=== PATIENT | male | born 1965 | race African-American/Black ===

== ENCOUNTER 2021-04-22 12:31 | Emergency (ER) | payer SELFPAY ==
[~2021-04-22] VITALS: Ht 177.8 cm; Wt 90.0 kg
[2021-04-22] MEDS ORDERED: VANCOMYCIN 2 GM in IV NORMAL SALINE 500ML BAG 500 ML IV ONE (15:15)
[2021-04-22] MEDS ORDERED: ceFAZolin SODIUM IV Push 1 GM VIAL. IVP ONE (15:15)
[2021-04-22] MEDS ORDERED: VANCOMYCIN PER PHARMACY MC ONE (15:15)
[2021-04-22] MEDS ORDERED: fentaNYL PF VIAL 100 MCG/2 ML VIAL IVP ONE (15:15)
--- NOTE | 2021-04-22 15:17 | PHYS DOC ---
Past Medical History Past Medical History: No Pertinent History Past Surgical History: No Surgical History Smoking Status: Never Smoker Alcohol Use: Occasionally Drug Use: None General Adult EDM: Chief Complaint: HAND PROBLEM HPI: HPI: Patient is a 55 year old male who presents with 2 days ago he was sitting in a chair and fell off to the side and put his left hand backward to catch himself and a piece of glass went into the palm of his hand. He states yesterday it began to swell and become very painful. Rates his pain a 10 out of 10 at this time. States his last tetanus shot was within the last 5 years. Denies any past medical history or any medications. Review of Systems: Review of Systems: Constitutional: Denies fever or chills. [] Eyes: Denies change in visual acuity. [] HENT: Denies nasal congestion or sore throat. [] Respiratory: Denies cough or shortness of breath. [] Cardiovascular: Denies chest pain or edema. [] GI: Denies abdominal pain, nausea, vomiting, bloody stools or diarrhea. [] : Denies dysuria. [] Musculoskeletal: Denies back pain or joint pain. + Left hand. + Index and thumb focal weakness [] Integument: Denies rash. + Left hand cellulitis [] Neurologic: Denies headache, focal weakness or sensory changes. [] Endocrine: Denies polyuria or polydipsia. [] Lymphatic: Denies swollen glands. [] Psychiatric: Denies depression or anxiety. [] Heart Score: C/O Chest Pain: No Allergies: Allergies: Allergies Coded Allergies Type Severity Reaction Last Updated Verified No Known Drug Allergies 04/22/21 No Physical Exam: PE: Constitutional: Well developed, well nourished, no acute distress, non-toxic appearance. [] HENT: Normocephalic, atraumatic, bilateral external ears normal, oropharynx moist, no oral exudates, nose normal. [] Eyes: PERRLA, EOMI, conjunctiva normal, no discharge. [] Neck: Normal range of motion, no tenderness, supple, no stridor. [] Cardiovascular:Heart rate regular rhythm, no murmur [] Lungs & Thorax: Bilateral breath sounds clear to auscultation [] Abdomen: Bowel sounds normal, soft, no tenderness, no masses, no pulsatile masses. [] Skin: Warm, dry, left hand erythema, no rash. [] Back: No tenderness, no CVA tenderness. [] Extremities: Left index finger tenderness, no cyanosis, no clubbing, thumb and index finger ROM not intact, 3+ edema. [] Neurologic: Alert and oriented X 3, normal motor function, normal sensory function, no focal deficits noted. [] Psychologic: Affect normal, judgement normal, mood normal. [] Current Patient Data: Vital Signs: Vital Signs Date Time Temp Pulse Resp B/P (MAP) Pulse Ox O2 Delivery O2 Flow Rate FiO2 04/22/21 14:58 98.5 90 16 157/90 (112) 98 Room Air 98.5 EKG: EKG: [] Radiology/Procedures: Radiology/Procedures: [] Impression: [facility] [address] [place], [place] [id number] IMAGING REPORT Signed PATIENT: SOCRATES BROWNLEE ACCOUNT: [id number] : 1965 LOCATION: ER AGE: 55 SEX: M EXAM STATUS: REG ER ORD. PHYSICIAN: AZALIA ARMENDARIZ APRN REASON: pain, swelling, after glass stuck in hand PROCEDURE: HAND LEFT 3V Study: XR HAND_LEFT 3 VIEWS Indication: Pain and swelling. Comparison: None. Findings: No acute fracture. Mild chronic deformity of the thumb metacarpal. No advanced arthrosis with maintained joint spaces. Edematous prominence of the soft tissues at the dorsum of the hand centered over the metacarpals. No retained radiopaque foreign body seen in this region. On the AP view a small focus of increased density projects over the proximal aspect of the index metacarpal but is without a correlate on the additional views to suggest a foreign body. Impression: No acute osseous abnormality. Edematous soft tissues at the dorsum of the hand without a retained radiopaque foreign body. Electronically signed by: HONEY PANG MD (04/22/2021 3:50 PM) [facility] DICTATED and SIGNED BY: HONEY PANG MD DATE: 04/22/21 [id number] 0 Course & Med Decision Making: Course & Med Decision Making Pertinent Labs and Imaging studies reviewed. (See chart for details) See HPI. Alert and oriented x4. Ambulatory steady gait. Skin pink warm and dry. Patient's left hand is 3+ swollen with redness. He has a scabbed over puncture to the palm of the hand. No fever. He cannot make a fist. He cannot flex the thumb or the index finger. He does have pain when manually flexing the index finger to the lateral aspect of the finger. Cap refills less than 2 seconds. Radial pulses strong and present. He did states that he has some numbness and tingling to the tips of his fingers. He can not open his hand fully nor can he close the hand fully. There is no tenderness to the palm of the hand or any other aspect of the hand except for that index finger. Patient does not have a primary care provider. Patient is placed on Rocephin and vancomycin. I spoke to Dr. Gonzales orthopedic and he states that the best care the patient would be for the patient to go to a facility that they are able to do hand surgery. X-ray shows maybe a possible foreign body to the anterior of the index finger but there is a none seen or felt with exam. I spoke with the patient about the need for transfer as we do not have a hand surgeon here and he could possibly need surgery. I told him the risk of going home without good follow-up care would be loss of the hand or disability. Also told him he could become more ill than he is at this time. Patient states that he is fine with being transferred but will talk with his about what mode of transportation he would like to use. 171: called me back to let me know that they no longer have a hand surgeon. We will now call [facility]. 1729: [facility] call me back and states that they will take the patient over in [facility] and I will get a call back with a confirming Doctor. 1825: Still awaiting [facility] to call me back with a accepting physician. 1911: [facility] has called back with an accepting physician of Dr. Bell. I gave report to the resident Dr Jacobson. 1913: Patient states that he has been here long enough and he is no longer waiting. He states to go to in the morning. He states he is not going to be transferred tonight. I let the patient know that I ready have it set up and he has a room waiting for him. He states no he wants to go home he is tired and he will go in the morning. Patient states that he did not agree to be transferred to any hospital. I remind the patient that me and him had a conversation about transfer and you stated that you would ask your about mode of transportation. Patient and then changes the subject and states " well I am deciding I am not staying on when to go in the morning. I am too tired for this. This is taken too long." I again told the patient I have a room waiting for him and he can be transferred there tonight and it is all set up. Patient is refusing. Patient is signing out AMA. [] Noé Disclaimer: Noé Disclaimer: This electronic medical record was generated, in whole or in part, using a voice recognition dictation system. Departure Departure Impression: Primary Impression: Infected hand Disposition: LEFT AGAINST MEDICAL ADVICE Condition: STABLE Referrals: NO PCP (PCP) AZALIA ARMENDARIZ SPEED OPERATOR Apr 22, 2021 15:17
[2021-04-22 15:50] LABS: BASO # 0.1 x10^3/uL (0.0-0.2); BASO % 1 % (0-3); EOS # 0.1 x10^3/uL (0.0-0.7); EOS % 1 % (0-3); HEMATOCRIT 45.6 % (39.0-53.0); HEMOGLOBIN 15.4 g/dL (13.0-17.5); LYMPH # 1.9 x10^3/uL (1.0-4.8); LYMPH % 27 % (24-48); MEAN CORPUSCULAR HEMOGLOBIN 33 pg (25-35); MEAN CORPUSCULAR HGB CONC 34 g/dL (31-37); MEAN CORPUSCULAR VOLUME 98 fL (79-100); MONO % 13 % (0-9); NEUT # 4.1 x10^3/uL (1.8-7.7); NEUT % 58 % (31-73); PLATELET COUNT 169 x10^3/uL (140-400); RED BLOOD COUNT 4.66 x10^6/uL (4.30-5.70); RED CELL DISTRIBUTION WIDTH 12.9 % (11.5-14.5); WHITE BLOOD COUNT 7.2 x10^3/uL (4.0-11.0)
--- NOTE | 2021-04-22 15:52 | RAD ---
Study: XR HAND_LEFT 3 VIEWS Indication: Pain and swelling. Comparison: None. Findings: No acute fracture. Mild chronic deformity of the thumb metacarpal. No advanced arthrosis with maintai robby joint spaces. Edematous prominence of the soft tissues at the dorsum of the hand centered over th e metacarpals. No retained radiopaque foreign body seen in this region. On the AP view a small focus of increased density projects over the proximal aspect of the index metacarpal but is without a corre late on the additional views to suggest a foreign body. Impression: No acute osseous abnormality. Edematous soft tissues at the dorsum of the hand without a retained rad iopaque foreign body. Electronically signed by: HONEY PANG MD (04/22/2021 3:50 PM) [facility]
[2021-04-22 16:21] LABS: CALCIUM 9.1 mg/dL (8.5-10.1); CREATININE 0.9 mg/dL (0.7-1.3); GFR 106.8; POTASSIUM 4.4 mmol/L (3.5-5.1)
[2021-04-22 16:27] LABS: ALBUMIN 3.8 g/dL (3.4-5.0); ALBUMIN/GLOBULIN RATIO 0.8 (1.0-1.7); C-REACTIVE PROTEIN 2.5 mg/L (0-3.3); TOTAL BILIRUBIN 0.8 mg/dL (0.2-1.0); TOTAL PROTEIN 8.3 g/dL (6.4-8.2)
[2021-04-22 17:37] VITALS: BP 135/80
--- NOTE | 2021-04-26 09:52 | NUR ---
IP: Attempted to contact pt concerning covid results. No answer, left a voicemail to return the call. Addendum: 04/26/21 at 1218 by KAE ALONSO RN Pt returned call. Informed him of negative covid test. Pt verbalized understanding.
== END 2021-04-22 19:17 | disposition left against medical advice (07) ==
LOC: ER 12:59
DX: M79.642 Pain in left hand (principal); Z20.822 Contact with and (suspected) exposure to COVID-19; G89.11 Acute pain due to trauma; L08.89 Other specified local infections of the skin and subcutaneous tissue; W07.XXXA Fall from chair, initial encounter; Y93.89 Activity, other specified; Y92.89 Other specified places as the place of occurrence of the external cause; Y99.8 Other external cause status
CPT/HCPCS: 36415; 73130; 80053; 83605; 85025; 85651; 86140; 87040; 87426; 96365; 96366; 96375; 99284; J0690; J3010; J3370; J7040; U0003; U0005